=== PATIENT | male | born 1935 | race Caucasian/White ===

== ENCOUNTER 2017-06-27 20:04 | Emergency (ER) | payer OTHER, MEDICARE ==
[~2017-06-27] VITALS: Ht 167.6 cm; Wt 68.0 kg
--- NOTE | 2017-06-27 20:21 | ED EYE COMPLAINT ---
History of Present Illness General Chief Complaint: Eye Problems Stated Complaint: RIGHT EYE PAIN Source: patient Exam Limitations: no limitations Vital Signs & Intake/Output Vital Signs & Intake/Output Vital Signs Date Time Temp Pulse Resp B/P B/P Pulse O2 O2 Flow FiO2 Mean Ox Delivery Rate 06/271 98.0 58 18 152/70 96 Room Air 06/274 98.1 66 16 148/71 98 Room Air 06/27 2041 Room Air 06/27 2008 97.9 62 18 152/69 96 Room Air Allergies Coded Allergies: Sulfa (Sulfonamide Antibiotics) (SORES 06/27/17) ciprofloxacin (From CIPRO) (SORES 06/27/17) Triage Note: PT TO TRIAGE C/O R EYE PAIN ALL DAY TODAY 09/01. DENIES BLURRY VISION/DIZZINESS. STATES HX OF BLOOD CLOT IN SAME EYE. DENIES IRRITANTS, GLASSES, CONTACT USAGE. Triage Nurses Notes Reviewed? yes Onset: Gradual Duration: constant Timing: recent history Severity: moderate Severity Numbers: 5 HPI: Patient is a E1-year-old male with a past medical history of CAD, status post CABG currently on pelvic rest, chronic kidney disease, right-sided eye retinal vein occlusion approximate 9 years ago, hypertension hyperlipidemia who presents emergency room with concerns of a gradual onset of four-day history of right- sided lateral orbit pain and temporal pain is made worse with palpation. Patient denies any mechanism of injury or trauma denies any eye pain blurred vision visual acuity changes fever chills trauma foreign-body sensation or photophobia. Denies any headache eyes any erythema or redness or swelling to the region (Ruiz Leonardo) Reconcile Medications Prednisone 50 MG TABLET 1 TAB PO DAILY temporal arteritis (Breanne TODD,Mehdi Grimaldo) Past History Travel History Traveled to [place] past 21 day No Medical History Any Pertinent Medical History? see below for history Neurological: NONE EENT: NONE Cardiovascular: hypertension, OPEN HEART SURGERY Respiratory: NONE Gastrointestinal: colitis Hepatic: NONE Renal: NONE Musculoskeletal: NONE Psychiatric: NONE Endocrine: NONE Blood Disorders: NONE Cancer(s): NONE FUND DEVELOPMENT MANAGER/Reproductive: NONE Surgical History Surgical History: non-contributory Psychosocial History What is your primary language Bhutanese Tobacco Use: Never used ETOH Use: denies use Family History Hx Contributory? No (Ruiz Leonardo) Review of Systems Review of Systems Constitutional: Reports: no symptoms. Eyes: Reports: see HPI. Denies: blurred vision, drainage, foreign body sensation, inflammation, photophobia, shadows, tunnel vision, vision change. Ear: Reports: no symptoms. Nose: Reports: no symptoms. Mouth: Reports: no symptoms. Throat: Reports: no symptoms. Respiratory: Reports: no symptoms. Cardiovascular: Reports: no symptoms. GI: Reports: no symptoms. Genitourinary: Reports: no symptoms. Musculoskeletal: Reports: no symptoms. Skin: Reports: no symptoms. Neurological/Psychological: Reports: no symptoms. Hematologic/Endocrine: Reports: no symptoms. Immunologic/Allergic: Reports: no symptoms. All Other Systems: Reviewed and Negative (Ruiz Leonardo) Physical Exam General Appearance: no apparent distress, alert, comfortable General Inspection: normal inspection Eyelid: normal inspection Conjunctiva/Sclera: normal inspection Cornea: normal inspection, examined w/fluorescein, NO FLUOROSCEIN UPTAKE EOM: intact Pupil: normal accommodation, normal pupil, PERRL General Inspection: normal inspection Eyelid: normal inspection Conjunctiva/Sclera: normal inspection Cornea: normal inspection Physical Exam Head: atraumatic, RIGHT TEMPORAL REGION, NOTED MODERATED POINT TENDERNESS NO PULSATILE MASS, NO ERYTHEMA OR SWELLING Mouth/Throat: normal mouth inspection Neck: normal inspection Cardiovascular/Respiratory: normal breath sounds, normal peripheral pulses Neurologic/Psych: no motor/sensory deficits Skin: intact, normal color, NOTED POINT TENDERNESS TO RIGHT LATERAL ORBIT AND TEMPORAL REGION, NO PULSATILE MASS (Ruiz Leonardo) Progress Differential Diagnosis: corneal abrasion, corneal foreign body, conjunctivitis, detached retina, glaucoma, globe rupture, retinal art./v. occlusion Plan of Care: Orders Procedure Date/time Status PARTIAL THROMBOPLASTIN TIME 06/27 2056 Complete PROTHROMBIN TIME 06/27 2056 Complete WESTERGREN SED RATE 06/27 2056 Complete C-REACTIVE PROTEIN 06/27 2056 Complete COMPREHENSIVE METABOLIC PANEL 06/27 2056 Complete CBC WITHOUT DIFFERENTIAL 06/27 2056 Complete Laboratory Tests 06/27/172114: Anion Gap 13, Estimated GFR 45 L, BUN/Creatinine Ratio 16.0, Glucose 124 H, Calcium 9.7, Total Bilirubin 0.5, AST 20, ALT 22, Alkaline Phosphatase 60, C- Reactive Prot, Quant 1.3 H, Total Protein 7.4, Albumin 4.4, Globulin 3.0, Albumin/Globulin Ratio 1.5, PT 14.3 H, INR 1.31 H, APTT 32, CBC w Diff NO MAN DIFF REQ, RBC 4.17 L, MCV 95.5 H, MCH 31.4 H, MCHC 32.8 L, RDW 12.7, MPV 7.6 , Gran % 59.4, Lymphocytes % 28.1, Monocytes % 8.8, Eosinophils % 3.1, Basophils % 0.6, Absolute Granulocytes 4.1, Absolute Lymphocytes 2.0, Absolute Monocytes 0.6, Absolute Eosinophils 0.2, Absolute Basophils 0, ESR Westergren 58 H Differential diagnosis include temporal arteritis Patient had PERRLA on exam extraocular muscles were intact no signs of infection or orbital cellulitis or periorbital cellulitis. Fluorescein staining was performed to right eye no uptake noted My suspicion of retinal artery occlusion or vein occlusion is low Note that patient does state that he played golf today with no visual acuity symptoms differential diagnoses include acute angle glaucoma however patient symptoms has a low suspicion of this. Upon palpation of patient's eye it was nontender and again patient has no visual acuity changes and patient has unremarkable physical exam findings of the eye itself. DISCUSSED PT WITH DR CARPIO who agrees discussed patient with Dr. Raymundo also agrees and advised patient to follow up with pavilion cutter Paul Givens MD for biopsy and patient will be given prednisone for concerns of temporal arteritis or patient's sedimentation rate was 58. (Ruiz Leonardo) Departure Departure Disposition: HOME OR SELF CARE Condition: Stable Clinical Impression Primary Impression: Temporal arteritis Secondary Impressions: Ocular migraine Referrals: Randy TODD,Mireya Figueroa (PCP/Family) Chon TODD,Paul Knight Additional Instructions: As discussed on Thursday please follow up with pavilion cutter Dr. Givens for further evaluation and biopsy for your presentation to the emergency room. Begin the prescription of prednisone as directed and continue checking her blood sugar regularly. If symptoms worsen or if he develop any new concerning symptom return to emergency room. Departure Forms: Customer Survey General Discharge Information Prescriptions: Current Visit Scripts Prednisone 1 TAB PO DAILY #28 TAB (Ruiz Leonardo) PA/AIR [employer]CH [employer] TECHNICIAN Co-Sign Statement Statement: ED Attending supervision documentation- [x] I saw and evaluated the patient. I have also reviewed all the pertinent lab results and diagnostic results. I agree with the findings and the plan of care as documented in the PA's/A[employer] TECHNICIAN's documentation. 06/27/17, 22:45... pt with focal right temporal tenderness in distribution of temporal artery, with elevated esr... possible giant cell arteritis... pt to be given steroids and referral for surgey for biposy and rheumatology for further management. [] I have reviewed the ED Record and agree with the PA's/AIR LA[employer]CH WEAP[employer] TECHNICIAN's documentation. [] Additions or exceptions (if any) to the PAs/AIR LA[employer]CH [employer] TECHNICIAN's note and plan are summarized below: [] (Breanne TODD,Mehdi Grimaldo) management. [] I have reviewed the ED Record and agree with the PA's/AIR LA[employer]CH [employer]AP[employer] TECHNICIAN's documentation. [] Additions or exceptions (if any) to the PAs/AIR LA[employer]CH [employer]AP[employer] TECHNICIAN's note and plan are summarized below: [] (Breanne TODD,Mehdi Grimaldo)
[2017-06-27 21:30] LABS: ABSOLUTE BASOPHIL COUNT 0 /CUMM (0.0-0.2); ABSOLUTE EOSINOPHIL COUNT 0.2 /CUMM (0.0-0.7); ABSOLUTE GRANULOCYTE CT 4.1 /CUMM (1.4-6.5); ABSOLUTE MONOCYTE COUNT 0.6 /CUMM (0.10-0.60); BASOPHIL % 0.6 % (0.0-2.0); EOSINOPHIL % 3.1 % (0-5); GRANULOCYTE % 59.4 % (42.2-75.2); HEMATOCRIT 39.8 % (42-52); MEAN CORPUSCULAR HGB 31.4 PG (27.0-31.0); MEAN CORPUSCULAR HGB CONC 32.8 G/DL (33.0-37.0); MEAN CORPUSCULAR VOLUME 95.5 FL (80.0-94.0); MEAN PLATELET VOLUME 7.6 FL (7.4-10.4); PLATELET COUNT 258 /CUMM (130-400); RBC DISTRIBUTION WIDTH 12.7 % (11.5-14.5); RED BLOOD CELL CT 4.17 /CUMM (4.70-6.10)
[2017-06-27 21:50] LABS: PT 14.3 SEC (9.4-12.5); PTT 32 SEC (25-37)
[2017-06-27] MEDS ORDERED: PREDNISONE50 M1 PO (22:49)
[2017-06-27 23:01] VITALS: BP 152/70
== END 2017-06-27 23:04 ==
LOC: ERH 20:04
PROVIDERS: Physician Assistant
DX: M31.6 Other giant cell arteritis (principal); G43.909 Migraine, unspecified, not intractable, without status migrainosus; I25.10 Atherosclerotic heart disease of native coronary artery without angina pectoris